=== PATIENT | male | born 1950 | race Caucasian/White ===

== ENCOUNTER 2022-06-28 07:40 | Observation (INO) | payer MEDICARE ==
[2022-06-21 11:53] VITALS: BP 159/71
[2022-06-21 12:13] LABS: BASOPHILS % (AUTO) 0.6 % (0.0-5.0); EOSINOPHILS % (AUTO) 2.2 % (0.0-8.0); HEMATOCRIT 38.4 % (42-54); LYMPHOCYTES % (AUTO) 20.7 % (21.0-51.0); MEAN CORPUSCULAR HEMOGLOBIN 20.5 pg (27.0-33.0); MEAN CORPUSCULAR HGB CONC 28.1 g/dL (32.0-36.0); MONOCYTES % (AUTO) 8.3 % (3.0-13.0); NEUTROPHILS % (AUTO) 67.8 % (40.0-77.0); PLATELET COUNT (AUTO) 225 K/uL (130-400); RED BLOOD CELL COUNT(AUTO) 5.26 MIL/uL (4.50-6.20); RED CELL DISTRIBUTION WIDTH 21.2 % (11.0-15.5); WHITE BLOOD COUNT (AUTO) 5.4 K/uL (4.8-10.8)
[2022-06-21 12:19] LABS: CREATININE 0.7 mg/dL (0.5-1.5); POTASSIUM 4.2 mmol/L (3.5-5.1)
[2022-06-21 12:22] LABS: PROTHROMBIN TIME 10.9 SEC (9.6-11.6)
[2022-06-21 12:24] LABS: PARTIAL THROMBOPLASTIN TIME 26.5 SEC (26.3-35.5)
[~2022-06-28] VITALS: Ht 185.4 cm; Wt 129.1 kg
[2022-06-28] VITALS (21 sets, daily range): BP systolic 148–190; BP diastolic 75–100
[~2022-06-28 07:40] MED LIST: CBD PO; CEFAZOLIN SODIUM 1 GM VIAL IVPB SCH; PANT40TA54 PO; ROPIVICAINE 250MG+KETOROLAC 15MG+EPINEPHRINE 0.3+CLONIDINE 80 IV PRN; SENN-307 PO; VITAD50000 PO; ZOLP10TA2 PO
[2022-06-28] MEDS: LACTATED RINGERS 1000ML 1,000 ML IV SCH ×3 (09:39→18:07)
[2022-06-28] MEDS ORDERED: TRANEXAMIC ACID 1000MG/10ML ONE (10:16)
[2022-06-28] MEDS ORDERED: GABA300S PO (11:30)
[2022-06-28] MEDS ORDERED: TYLENOL ARTHRITIS PO (11:30)
[2022-06-28] MEDS ORDERED: LIDOCAINE PF 100MG/5ML (2%) SYRINGE 5ML ONE (12:24)
[2022-06-28] MEDS ORDERED: PROPOFOL 10 MG/ML 20ML VIAL IV ONE (12:24)
[2022-06-28] MEDS ORDERED: EPHEDRINE SULFATE 50 MG/ML AMPULE ONE (12:24)
[2022-06-28] MEDS ORDERED: MIDAZOLAM HCL 1 MG/ML 2ML VIAL ONE (12:25)
[2022-06-28] MEDS ORDERED: ROCURONIUM 10MG/1ML SYR 10 MG/ML ML ONE (12:25)
[2022-06-28] MEDS ORDERED: FENTANYL CITRATE PF 50 MCG/1 ML 2ML VIAL ONE ×2 (12:26→13:17)
[2022-06-28] MEDS ORDERED: CEFAZOLIN SODIUM 2 GM VIAL IVPB ONE (12:49)
[2022-06-28] MEDS ORDERED: TRANEXAMIC ACID 1000MG/10ML IV ONE (12:57)
[2022-06-28] MEDS ORDERED: DEXAMETHASONE SOD PHOSPHATE 10MG/ML 1ML VIAL ONE (13:09)
[2022-06-28] MEDS ORDERED: ONDANSETRON 4MG INJ ONE (13:09)
[2022-06-28] MEDS ORDERED: MORPHINE 4 MG SYG IVP PRN (13:30)
[2022-06-28] MEDS ORDERED: HYDROCODONE/ACETAMINOPHEN 10/325 MG TAB PO PRN (13:30)
[2022-06-28] MEDS ORDERED: KCL 20 MEQ ERTAB PO PRN (13:30)
[2022-06-28] MEDS ORDERED: POTASSIUM CHLORIDE 20MEQ/100ML 100 ML IV PRN (13:30)
[2022-06-28] MEDS ORDERED: ONDANSETRON 4MG INJ IVP PRN (13:30)
[2022-06-28] MEDS ORDERED: LIDOCAINE HCL-MPF 1% 2ML VIAL IV PRN (13:30)
[2022-06-28] MEDS ORDERED: POTASSIUM CHLORIDE 10% ELIXIR 20 MEQ/15 ML UDCUP PO PRN (13:30)
[2022-06-28] MEDS: ACETAMINOPHEN 1,000 MG/100 ML VIAL IV SCH ×3 (13:30→23:24)
[2022-06-28] MEDS ORDERED: HYDROCODONE/ACETAMINOPHEN 5/325 MG TAB PO PRN (13:30)
[2022-06-28] MEDS ORDERED: MEPERIDINE-PF 25 MG/ML SYG ONE (15:59)
[2022-06-28] MEDS: 0.9%NACL 1000ML 1,000 ML IV SCH ×2 (18:16→23:24)
[2022-06-28] MEDS: IBUPROFEN 800MG + NS 250ML IV SCH (18:16)
[2022-06-28] MEDS: FAMOTIDINE 20MG TAB PO SCH (20:28)
[2022-06-28] MEDS: ASPIRIN 81 MG EC TAB PO SCH (20:28)
[2022-06-28] MEDS: CEFAZOLIN SODIUM 1 GM VIAL IVPB SCH (20:29)
[2022-06-28] MEDS ORDERED: ZOLPIDEM TARTRATE 5 MG TAB PO SCH (21:00)
[2022-06-29] VITALS: BP 157/79
[2022-06-29] MEDS: IBUPROFEN 800MG + NS 250ML IV SCH ×2 (02:23→09:50)
[2022-06-29 04:00] VITALS: BP 146/69
[2022-06-29] MEDS ORDERED: CEFAZOLIN SODIUM 2 GM VIAL ONE (04:30)
[2022-06-29] MEDS: CEFAZOLIN SODIUM 1 GM VIAL IVPB SCH (04:33)
[2022-06-29 04:46] LABS: HEMATOCRIT 32.9 % (42-54); MEAN CORPUSCULAR HEMOGLOBIN 20.7 pg (27.0-33.0); MEAN CORPUSCULAR HGB CONC 28.9 g/dL (32.0-36.0); MEAN CORPUSCULAR VOLUME 71.5 fL (79-99); PLATELET COUNT (AUTO) 222 K/uL (130-400); RED CELL DISTRIBUTION WIDTH 19.9 % (11.0-15.5); WHITE BLOOD COUNT (AUTO) 13.6 K/uL (4.8-10.8)
[2022-06-29 04:58] LABS: CREATININE 0.7 mg/dL (0.5-1.5); POTASSIUM 4.1 mmol/L (3.5-5.1)
[2022-06-29] MEDS: ACETAMINOPHEN 1,000 MG/100 ML VIAL IV SCH (05:49)
[2022-06-29 08:00] VITALS: BP 151/77
[2022-06-29] MEDS: FAMOTIDINE 20MG TAB PO SCH (08:29)
[2022-06-29] MEDS: ASPIRIN 81 MG EC TAB PO SCH (08:29)
[2022-06-29] MEDS ORDERED: POLYETHYLENE GLYCOL 3350 17 GM POWD.PACK PO SCH (09:00)
[2022-06-29] MEDS ORDERED: PANTOPRAZOLE 40 MG TAB DR PO SCH (09:00)
[2022-06-29] MEDS ORDERED: GABAPENTIN 300 MG CAPSULE PO SCH (09:00)
[2022-06-29] MEDS: 0.9%NACL 1000ML 1,000 ML IV SCH (09:30)
[2022-06-29 11:51] VITALS: BP 127/71
[2022-07-01] MEDS ORDERED: BISACODYL 10 MG SUPP.RECT RC PRN (13:30)
== END 2022-06-29 14:20 | disposition home or self-care (01) ==
LOC: DAH 07:40 → DAHIP 07:41 → DAH 07:41 → 3CH 16:30
PROVIDERS: ADMIT Orthopaedic Surgery; ATTEND Orthopaedic Surgery
DX: M17.11 Unilateral primary osteoarthritis, right knee (principal); Z20.822 Contact with and (suspected) exposure to COVID-19; Z79.899 Other long term (current) drug therapy; Z98.890 Other specified postprocedural states
CPT/HCPCS: 80048 ×2; 85025; 85610; 85730; 87426; 36415 ×2; 93005; 87641; 27447; 96365; 96366 ×2; 96367; 97039 ×2; 85027; 97161; 97116 ×2; 97530; A6260; G0378 ×21; A4663; J7030; A4649 ×4; J7120; J3010 ×2; J0690 ×4; J3490 ×3; J1100; J2001; J2250; J2704; J2405 ×2; J2175; J1741; G0168; C1776 ×4; A6255; A6254; A5120; A4215; A4223; A4222; A4221

== ENCOUNTER 2024-04-27 07:06 | Emergency (ER) | payer MEDICARE ==
[~2024-04-27] VITALS: Ht 185.4 cm; Wt 133.4 kg
[~2024-04-27 07:06] MED LIST changes: -CEFAZOLIN SODIUM 1 GM VIAL IVPB SCH; +GABA300S3 PO; -ROPIVICAINE 250MG+KETOROLAC 15MG+EPINEPHRINE 0.3+CLONIDINE 80 IV PRN; +TYLENOL ARTHRITIS PO; -ZOLP10TA2 PO
--- NOTE | 2024-04-27 07:46 | EKG ---
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
--- NOTE | 2024-04-27 08:00 | ERN ---
ED Note History of Present Illness Stated Complaint: BRIGHT RED RECTAL BLEEDING Chief Complaint: Bloody Stool Time Seen by MD: 07:45 Dictation: Patient is a 74-year-old male with a history AFib,, hypertension and GI to the ED for a GI bleed that started 2 weeks ago. Patient states he has been on Xarelto but discontinued taking it last Saturday. Patient denies any chest pain, nausea, vomiting, fevers, or chills. Per patient's patient has had some shortness of breath and fatigue. Patient admits to having a possible hemorrhoid and takes a stool softener to help with constipation. Allergies: Coded Allergies: No Known Drug Allergies (Unverified Allergy, Unknown, 06/21/22) Home Meds Active Scripts Metronidazole (Metronidazole) 500 Mg Tablet, 1 TAB PO BID for 7 Days, #14 TAB 0 Refills Prov:BILLIE GAMINO MD 04/27/24 Reported Medications [Tylenol Arthritis] No Conflict Check, 650 MG PO AD PRN for PAIN 06/28/22 Gabapentin (Gabapentin) 300 Mg/6 Ml Solution, 300 MG PO DAILY, ML 06/28/22 [Cbd] No Conflict Check, 1 GUM PO AD PRN for PAIN 06/21/22 Cholecalciferol (Vitamin D3) 50,000 Units Cap, 57350 UNITS PO WEEKLY, CAP 06/21/22 Sennosides/Docusate Sodium (Stool Softener Tablet) 1 Each Tablet, 1 EACH PO AD PRN for CONSTIPATION, TAB 06/21/22 Pantoprazole Sodium (Pantoprazole Sodium) 40 Mg Tablet.dr, 40 MG PO AM, TAB 06/21/22 Past Medical History Past Medical History: A-Fib, GI Bleed, Heart Disease, Hypertension Surgical History: Appendectomy, Tonsillectomy Surgical History Other: KNEE Review of System Dictation Constitutional-no chills, weight loss/gain, fever. Positive for fatigue Eyes-no injury, pain, redness and discharge ENT-no injury, pain, swelling Cardiovascular no chest pain, palpitations, edema Respiratory no cough, wheezing. Positive for shortness of breath Abdomen/GI-no abdominal pain, diarrhea, vomiting, nausea. Positive for constipation. Positive for bloody stools. Back no injury and pain Genitourinary no injury, bleeding and discharge Musculoskeletal/extremities no injury, deformity Skin no rash, discoloration Neuro-no headache, weakness, numbness, tingling, seizures, tremors Psych-no suicidal ideation, homicidal ideation, hallucinations, depression, anxiety, memory loss Initial Vital Sign VS Vital Signs Date Time Temp Pulse Resp B/P (MAP) Pulse Ox O2 Delivery O2 Flow Rate FiO2 04/27/24 07:08 98.1 71 16 146/86 95 Room Air 0 04/27/24 09:50 21 Physical Exam Dictation General-patient is awake alert and oriented Head/neck-normocephalic, atraumatic Eyes-PERRL, EOMI, vision at baseline Neck-trachea midline, supple, no nuchal rigidity Cardiovascular-RRR, normal S1/S2, no MRG is, no JVD Respiratory-no distress, wheezing, rales, rhonchi Abdomen-no tenderness, guarding, soft, nondistended Skin warm, dry, normal turgor, no rash Musculoskeletal/extremities pulses equal, no cyanosis Neuro-COA X 4, GCS 15, strength 5/5, CN 2-12 intact Psych-normal behavior, mood and affect normal Results (Laboratory/Radiology) Laboratory/Radiology Laboratory Tests Test 04/27/24 07:50 04/27/24 08:08 White Blood Count 5.0 K/uL (4.8-10.8) Red Blood Count 4.71 MIL/uL (4.50-6.20) Hemoglobin 14.5 g/dL (14.0-18.0) Hematocrit 43.9 % (42-54) Mean Corpuscular Volume 93.2 fL (79-99) Mean Corpuscular Hemoglobin 30.8 pg (27.0-33.0) Mean Corpuscular Hemoglobin Concent 33.0 g/dL (32.0-36.0) Red Cell Distribution Width 13.1 % (11.0-15.5) Platelet Count 165 K/uL (130-400) Mean Platelet Volume 11.0 fL (7.5-10.5) H Immature Granulocyte % (Auto) 0.2 % (0-1) Neutrophils (%) (Auto) 68.1 % (40.0-77.0) Lymphocytes (%) (Auto) 20.7 % (21.0-51.0) L Monocytes (%) (Auto) 7.6 % (3.0-13.0) Eosinophils (%) (Auto) 3.0 % (0.0-8.0) Basophils (%) (Auto) 0.4 % (0.0-5.0) Neutrophils # (Auto) 3.4 K/uL (1.8-7.7) Lymphocytes # (Auto) 1.0 K/uL (1.0-4.8) Monocytes # (Auto) 0.4 K/uL (0.1-1.0) Eosinophils # (Auto) 0.15 K/uL (0.00-0.70) Basophils # (Auto) 0.02 K/uL (0.00-0.20) Absolute Immature Granulocyte (auto 0.01 K/uL (0-1) Nucleated Red Blood Cells 0.0 % (0.0-0.19) Sodium Level 139 mmol/L (136-145) Potassium Level 3.9 mmol/L (3.5-5.1) Chloride Level 102 mmol/L (101-111) Carbon Dioxide Level 31 mmol/L (21-32) Blood Urea Nitrogen 11 mg/dL (7-18) Creatinine 0.7 mg/dL (0.5-1.3) Glomerular Filtration Rate Calc 95 mL/min (>90) Random Glucose 100 mg/dL (70-105) Total Calcium 8.9 mg/dL (8.5-10.1) Stool Occult Blood POSITIVE (NEGATIVE) H EKG Comment: EKG obtained 04/27/2024 at 07:45:11 Atrial fibrillation Rate [address] elevation or depression ED Course ED Course Orders Procedure Category Date Status Time Type And Screen BBK 04/27/24 Complete 07:20 Occult Blood Stool LAB 04/27/24 Complete Single Only 07:20 Cbc With Differential LAB 04/27/24 Complete 07:20 Basic Metabolic Panel LAB 04/27/24 Complete 07:20 12 Lead Ekg Tracing- EKG 04/27/24 Complete Technical 07:31 Chest 1vw RAD 04/27/24 Resulted 07:31 Bacitracin PHA 04/27/24 Complete (Bacitracin) 10:00 Current Medications Medications (Trade) Dose Ordered Sig/Amy Route PRN Reason Start Time Stop Time Status Last Admin Dose Admin Bacitracin (Bacitracin) 1 each ONCE ONCE TP 04/27/24 10:00 04/27/24 09:56 DC 04/27/24 09:55 Vital Signs Date Time Temp Pulse Resp B/P (MAP) Pulse Ox O2 Delivery O2 Flow Rate FiO2 04/27/24 09:50 98.1 70 14 146/86 95 Room Air* 0 21 04/27/24 07:08 98.1 71 16 146/86 95 Room Air 0 Medical Decision Making [facility] INITIAL IMPRESSION Initial history and physical concerning for GI bleed, hemorrhoids Contributing medical problems: Hx of GI bleed, use of blood thinner, hx of hemorrhoids I have reviewed the triage nursing notes and vital signs. Initial plan: Laboratory evaluation, EKG, CXR, FOBT DATA REVIEW I have reviewed additional NN, repeat VS, and monitoring where indicated. Heart rate, blood pressure, and O2 saturation are acceptable. ED COURSE Interventions: Rectal exam, application of topical antibiotics Reassessment: Not indicated DISPOSITION Final diagnostic impression: Abrasions found on rectal exam possibly due to use of hemorrhoidal cream which can cause thinning of the skin. I discussed my findings, clinical impression and treatment recommendations with the patient. My final plan for disposition was made based upon -mild risk of complications and potential morbidity of the patient's condition. -Discussion with the patient regarding management options. Patient advised to discontinue use of hemorrhoidal cream and start oral antibiotics. DX & DISP Disposition: Discharge Departure Impression: Primary Impression: Abrasion of skin of anus Additional Impression: Hemorrhoids Condition: Stable Scripts Metronidazole (Metronidazole) 500 Mg Tablet 1 TAB PO BID for 7 Days, #14 TAB 0 Refills Prov: BILLIE GAMINO MD 04/27/24 Additional Instructions: Discontinue use of hemorrhoidal cream. Can continue to use stool softener as needed but be sure to clean anal area with water and fragments free soap, baby wipes, or medicated pads. Were loose clothing and cotton underwear to reduce moisture. Follow-up with gastroenterology. FOLLOW-UP WITH PRIMARY CARE PROVIDER IN 1 TO 2 DAYS. TAKE MEDICATIONS DIRECTED HERE IN THE EMERGENCY ROOM. OKAY TO CONTINUE HOME MEDICATIONS UNLESS OTHERWISE DISCUSSED DURING YOUR VISIT IN THE EMERGENCY ROOM TODAY. RETURN TO YOUR NEAREST EMERGENCY ROOM IF SYMPTOMS WORSEN OR IF THERE IS NO IMPROVEMENT. CALL 911 IF YOU NEED IMMEDIATE ASSISTANCE. TAKE TYLENOL [id number] NEEDED AND IF NO CONTRAINDICATIONS ARE PRESENT. INCREASE ORAL HYDRATION. A WOUND CULTURE OR URINE CULTURE WAS ORDERED HERE IN THE EMERGENCY ROOM DEPARTMENT PLEASE FOLLOW-UP WITH PRIMARY CARE PROVIDER AND ADVISE THEM TO GET REPEAT PORTS FROM OUR FACILITY. IF YOU HAD ANY WHIT WRAP/SPLINTS THAT WERE APPLIED HERE, PLEASE DO NOT REMOVE THEM UNTIL YOU SEE YOUR PRIMARY CARE OR SPECIALTY. Referrals: MARCO ANTONIO PALACIO MD (PCP) Time of Disposition: 09:35 I have reviewed I have reviewed the case I was present and participated in the care of this patient alongside the resident physician. I have reviewed and personally made and improve the management plan that is documented in the note by myself or the resident physician. I acknowledge full responsibility for the patient's management plan. I have examined patient BILLIE GAMINO MD Apr 27, 2024 08:00 KALIE REED MD Apr 27, 2024 18:16
[2024-04-27 08:20] LABS: BASOPHILS # (AUTO) 0.02 K/uL (0.00-0.20); BASOPHILS % (AUTO) 0.4 % (0.0-5.0); EOSINOPHILS # (AUTO) 0.15 K/uL (0.00-0.70); HEMATOCRIT 43.9 % (42-54); IMMATURE GRANULOCYTE ABSOLUTE 0.01 K/uL (0-1); LYMPHOCYTES % (AUTO) 20.7 % (21.0-51.0); MEAN CORPUSCULAR HEMOGLOBIN 30.8 pg (27.0-33.0); MEAN CORPUSCULAR VOLUME 93.2 fL (79-99); MONOCYTES # (AUTO) 0.4 K/uL (0.1-1.0); MONOCYTES % (AUTO) 7.6 % (3.0-13.0); NEUTROPHILS # (AUTO) 3.4 K/uL (1.8-7.7); NEUTROPHILS % (AUTO) 68.1 % (40.0-77.0); PLATELET COUNT (AUTO) 165 K/uL (130-400); RED BLOOD CELL COUNT(AUTO) 4.71 MIL/uL (4.50-6.20); RED CELL DISTRIBUTION WIDTH 13.1 % (11.0-15.5)
[2024-04-27 08:24] LABS: CREATININE 0.7 mg/dL (0.5-1.3); POTASSIUM 3.9 mmol/L (3.5-5.1)
--- NOTE | 2024-04-27 08:45 | HMCIMG ---
CHEST 1VW HISTORY: Shortness of breath COMPARISON: None FINDINGS: A frontal projection of the chest was obtained. Prominent interstitial markings are seen with possible superimposed infiltrates. The heart is enlarged. Degenerative changes are seen. No evidence of aortic calcification is seen. IMPRESSION: 1. Prominent interstitial markings are seen with possible superimposed infiltrates.
[2024-04-27] MEDS ORDERED: METR-172 PO (09:37)
[2024-04-27 09:50] VITALS: BP 146/86; PULSE 70; RESP 14; TEMP 98.1; O2SAT 95
[2024-04-27] MEDS: BACITRACIN 1 EACH PACKET TP ONE (09:55)
== END 2024-04-27 09:56 | disposition home or self-care (01) ==
LOC: EDH 07:06
DX: S30.817A Abrasion of anus, initial encounter (principal); K64.9 Unspecified hemorrhoids; I10 Essential (primary) hypertension; I48.91 Unspecified atrial fibrillation; Z79.899 Other long term (current) drug therapy; Z90.49 Acquired absence of other specified parts of digestive tract; Z90.89 Acquired absence of other organs; X58.XXXA Exposure to other specified factors, initial encounter; Y93.89 Activity, other specified; Y92.89 Other specified places as the place of occurrence of the external cause; Y99.8 Other external cause status
CPT/HCPCS: 36415; 71045; 80048; 82270; 85025; 86850; 86900; 86901; 93005; 99285